=== PATIENT | female | born 1980 | race Two or more races ===

== ENCOUNTER 2022-12-29 14:30 | Emergency (ER) | payer OTHER ==
[2022-12-29 14:48] VITALS: BP 128/75; PULSE 78; RESP 20; TEMP 98.8; BMI 29.0
[2022-12-29] MEDS ORDERED: BENZOCAINE/MENTH/CETYLPYRD CL 1 EACH LOZENGE MM PRN (15:56)
[2022-12-29] MEDS ORDERED: ONDANSETRON 4 MG TABLET PO ONE (15:56)
[2022-12-29] MEDS ORDERED: guaiFENesin/CODEINE 10 ML UNIT-DOSE CUPS PO ONE (15:57)
[2022-12-29] MEDS ORDERED: ACETAMINOPHEN 500 MG TABLET (FP) PO ONE (15:58)
[2022-12-29] MEDS ORDERED: ONDANSETRON *ODT* 4 MG TABLET ONE (16:41)
[2022-12-29] MEDS ORDERED: guaiFENesin/CODEINE 5 ML UNIT-DOSE CUPS PO ONE (16:42)
[2022-12-29] MEDS ORDERED: ACETAMINOPHEN 500 MG TABLET (FP) ONE (16:42)
[2022-12-29] MEDS ORDERED: ALBUTEROL SO4 2.5/IPRATROPIUM 0.5 INH SOL 3 ML VIAL.NEB. NEB ONE (17:01)
[2022-12-29 17:11] LABS: EPI CELLS 6 /uL (0-25.1); HYALINE CASTS 0 /uL (0-3.1); URINE APPEARANCE CLEAR; URINE BACTERIA 42 /uL (0-1359); URINE BILIRUBIN NEGATIVE (NEGATIVE); URINE COLOR YELLOW; URINE GLUCOSE (UA) NEGATIVE (NEGATIVE); URINE KETONE NEGATIVE (NEGATIVE); URINE LEUK ESTERASE NEGATIVE (NEGATIVE); URINE NITRITE NEGATIVE (NEGATIVE); URINE PROTEIN NEGATIVE (NEGATIVE); URINE RBC 50 /uL (0-23.9); URINE UROBILINOGEN 0.2 mg/dL (0.2-1.0); URINE WBC 3 /uL (0-25.8)
== END 2022-12-29 18:21 | disposition home or self-care (01) ==
LOC: JERFT 14:30
PROC: 3E0F7GC Introduction of Other Therapeutic Substance into Respiratory Tract, Via Natural or Artificial Opening (ICD-10-PCS; principal; 2022-12-29)
DX: R05.9 Cough, unspecified (principal); R09.81 Nasal congestion; J02.9 Acute pharyngitis, unspecified; R11.0 Nausea; R35.0 Frequency of micturition; R09.89 Other specified symptoms and signs involving the circulatory and respiratory systems; J06.9 Acute upper respiratory infection, unspecified; B97.89 Other viral agents as the cause of diseases classified elsewhere; J40 Bronchitis, not specified as acute or chronic; J39.2 Other diseases of pharynx; Z20.822 Contact with and (suspected) exposure to COVID-19
CPT/HCPCS: 0241U-QW; 71046-TC-FY; 81003; 84703; 87070; 87086; 87186; 87651; 99284-25